=== PATIENT | male | born 1995 ===

== ENCOUNTER 2016-10-25 18:00 | Emergency (ER) | payer MEDICAID ==
[2016-10-25 18:17] LABS: % IMMATURE GRANULYOCYTES 0.2 % (0.0-1.1); ABSOLUTE IMMATURE GRANULOCYTES 0.01 10^3/uL (0.00-0.10); ADD DIFF? NO; ADD MORPH? NO; ADD SCAN? NO; ATYPICAL LYMPHOCYTE FLAG 10 (0-99); FRAGMENT RBC FLAG 0 (0-99); HEMATOCRIT 46.3 % (40.0-51.0); HEMOGLOBIN 15.8 g/dL (13.7-17.5); LEFT SHIFT FLG 0 (0-99); LIPEMIA HEMOLYSIS FLAG 90 (0-99); MEAN CELL HEMOGLOBIN 29.9 pg (27.9-34.1); MEAN CELL HEMOGLOBIN CONCENTR. 34.1 g/dL (32.4-36.7); MEAN CELL VOLUME 87.7 fL (81.5-99.8); MEAN PLATELET VOLUME 9.1 fL (8.7-11.7); PLATELET CLUMPS FLAG 0 (0-99); PLATELET COUNT 313 10^3/uL (150-400); RED BLOOD CELL COUNT 5.28 10^6/uL (4.40-6.38)
[2016-10-25 18:26] LABS: ANION GAP 14 mEq/L (8-16); CALCIUM 10.4 mg/dL (8.5-10.4); CARBON DIOXIDE 19 mEq/l (22-31); CHLORIDE 111 mEq/L (97-110); CREATININE 0.8 mg/dL (0.7-1.3); GLOMERULAR FILTRATION RATE > 60; GLUCOSE 86 mg/dL (70-100); POTASSIUM 4.1 mEq/L (3.5-5.2); SODIUM 144 mEq/L (134-144)
[2016-10-25] MEDS ORDERED: NS 1,000 ML IV ONE ×2 (18:30→18:35)
--- NOTE | 2016-10-25 18:34 | EDPHY ---
H & P Stated Complaint: Feels weak;night of drinking and possible drug use Time Seen by Provider: 10/25/16 18:10 HPI/ROS: CHIEF COMPLAINT: feeling faint HISTORY OF PRESENT ILLNESS: 21-year-old male presents to the emergency department by ambulance reporting he feels fatigued and hung over. Patient showed up to the [employer], sat at a picnic table, placed his head on the table and asked someone to call 911 as he feels faint. Patient reports drinking heavily last night. He reports he also may have used drugs. He has a history heroin use. Last time he remembers using heroin was 3 days ago. He states he smokes this. Patient denies headache, neck pain. He denies trauma. The patient denies nausea or vomiting, no abdominal pain. Denies fevers. Patient denies difficulty urinary symptoms, no diarrhea. REVIEW OF SYSTEMS: A comprehensive 10 point review of systems is otherwise negative aside from elements mentioned in the history of present illness. Source: Patient, EMS Exam Limitations: No limitations - Personal History Current Tetanus Diphtheria and Acellular Pertussis (TDAP): Yes - Medical/Surgical History Hx Asthma: Yes Other PMH: leukemia (in remission) - Social History Alcohol Use: Heavy Drug Use: Heroin - Physical Exam Exam: Physical Exam Gen: Alert and Oriented, NAD HEENT: PERRL, dry mucous membranes NECK: no meningismus CV: regular rate and regular rhythm PULM: CTAB, no wheezes ABDOMEN: soft, non tender to palpation, BS present BACK: No CVA tenderness NEURO: Neurologically grossly intact EXTREMITIES: normal appearing SKIN: Multiple scabs to extremities, scab to chin PSYCH: answers questions appropriately. Constitutional: Initial Vital Signs Temperature (C) 37 C 10/25/16 18:00 Heart Rate 65 10/25/16 18:00 Respiratory Rate 16 10/25/16 18:00 Blood Pressure 120/77 10/25/16 18:00 O2 Sat (%) 100 10/25/16 18:00 O2 Delivery Mode Room Air Allergies/Adverse Reactions: No Known Allergies Allergy (Unverified 10/25/16 18:09) Home Medications: Medication Instructions Recorded Albuterol Sulfate [Proventil Hfa] 6.7 gm IH 10/25/16 Medical Decision Making ED Course/Re-evaluation: Patient arrives to the emergency department by EMS with an IV in place. Patient is given 2 L normal saline. He has dry mucous membranes. CBC and chemistry panel are unremarkable. Patient is awake and alert. He states he feels hung over. He feels better after 2 L of fluid. 1855-patient ambulatory in the emergency department without difficulty, he has no tongue fasciculations, no tremors, no auditory or visual hallucinations. He reports feeling better after 2 L of normal saline. He will be discharged. Patient is given return precautions for any worsening symptoms, new symptoms or concerns. Differential Diagnosis: Diagnosis considered but not limited to polysubstance abuse, alcohol abuse, heroin withdrawal, electrolyte abnormality - Data Points Laboratory Results: Laboratory Results 10/25/16 18:00 10/25/16 18:00 10/25/16 10/25/16 18:00 18:00 WBC 6.54 10^3/uL 10^3/uL (3.80-9.50) RBC 5.28 10^6/uL 10^6/uL (4.40-6.38) Hgb 15.8 g/dL g/dL (13.7-17.5) Hct 46.3 % % (40.0-51.0) MCV 87.7 fL fL (81.5-99.8) MCH 29.9 pg pg (27.9-34.1) MCHC 34.1 g/dL g/dL (32.4-36.7) RDW 14.0 % % (11.5-15.2) Plt Count 313 10^3/uL 10^3/uL (150-400) MPV 9.1 fL fL (8.7-11.7) Neut % (Auto) 49.2 % % (39.3-74.2) Lymph % (Auto) 40.1 % % (15.0-45.0) [place] % (Auto) 5.8 % % (4.5-13.0) Eos % (Auto) 3.5 % % (0.6-7.6) Baso % (Auto) 1.2 % % (0.3-1.7) Nucleat RBC Rel Count 0.0 % % (0.0-0.2) Absolute Neuts (auto) 3.22 10^3/uL 10^3/uL (1.70-6.50) Absolute Lymphs (auto) 2.62 10^3/uL 10^3/uL (1.00-3.00) Absolute Monos (auto) 0.38 10^3/uL 10^3/uL (0.30-0.80) Absolute Eos (auto) 0.23 10^3/uL 10^3/uL (0.03-0.40) Absolute Basos (auto) 0.08 10^3/uL 10^3/uL (0.02-0.10) Absolute Nucleated RBC 0.00 10^3/uL 10^3/uL (0-0.01) Immature Gran % 0.2 % % (0.0-1.1) Immature Gran # 0.01 10^3/uL 10^3/uL (0.00-0.10) Sodium 144 mEq/L mEq/L (134-144) Potassium 4.1 mEq/L mEq/L (3.5-5.2) Chloride 111 mEq/L H mEq/L (97-110) Carbon Dioxide 19 mEq/l L mEq/l (22-31) Anion Gap 14 mEq/L mEq/L (8-16) BUN 10 mg/dL mg/dL (7-23) Creatinine 0.8 mg/dL mg/dL (0.7-1.3) Estimated GFR > 60 Glucose 86 mg/dL mg/dL (70-100) Calcium 10.4 mg/dL mg/dL (8.5-10.4) Medications Given: Discontinued Medications Sodium Chloride (Ns) 1,000 mls @ 0 mls/hr IV ONCE ONE; Wide Open PRN Reason: Protocol Stop: 10/25/16 18:31 Last Admin: 10/25/16 18:10 Dose: 1,000 mls Departure - Departure Disposition: Home, Routine, Self-Care Clinical Impression: Polysubstance abuse Condition: Good Instructions: Polysubstance Abuse (ED) Additional Instructions: Stop using drugs. Return to the emergency department any new symptoms, worsening symptoms or concerns. Referrals: [facility],. [Clinic] - As per Instructions
[2016-10-25 19:03] VITALS: BP 125/77; PULSE 86; RESP 18; TEMP 97.9; O2SAT 96
== END 2016-10-25 19:01 | disposition home or self-care (01) ==
DX: F19.10 Other psychoactive substance abuse, uncomplicated (principal); J45.909 Unspecified asthma, uncomplicated; E86.9 Volume depletion, unspecified